=== PATIENT | male | born 1960 | race Caucasian/White ===

== ENCOUNTER → 2022-02-10 14:53 | Outpatient (CLI) | payer OTHER, SELFPAY ==
--- NOTE | 2022-02-10 15:09 | DI.MRI.S_ITS ---
PROCEDURE: MR LUMBAR SPINE WO CON INDICATIONS: Spinal stenosis, lumbar region TECHNIQUE: Noncontrast sagittal T1 spin echo and T2 fast echo, sagittal STIR, and T2 fast spin echo through the lumbar spine. In cases with scoliosis, additional coronal T2 fast spin echo may be performed. COMPARISON: None. FINDINGS: Image quality: Excellent. Alignment and Curvature: There is normal bony alignment. Bone Marrow: Marrow is of normal overall signal. No acute vertebral body compression fractures. Small vertebral body hemangioma are focal fatty sparing noted in the L2 vertebral body. Posterior júnior and screw instrumentation noted at L4-5 and L5-S1 associated with well-healed interbody fusion Spinal Cord: Conus medullaris terminates at the L1 level. Visualized cord demonstrates normal signal and size. Paraspinous Soft Tissues: No paravertebral masses. T12-L1: Normal appearance. L1-L2: Normal appearance. L2-L3: Disc height is preserved. Mild hypertrophic facet joints present. No central or foraminal stenosis. L3-L4: Disc height is preserved. No central or foraminal stenosis. L4-L5: Discectomy and fusion. No central stenosis. Moderate right and no left foraminal stenosis L5-S1: Discectomy and fusion. No central stenosis noted. There is moderate right and mild left foraminal stenosis. IMPRESSION: L4-5 and L5-S1 discectomy and fusion with good graft incorporation and posterior júnior and screw instrumentation in good position. Moderate right foraminal stenosis L4-5 and L5-S1 Approved by: Kole Rodriguez M.D. on 02/11/2022 at 9:19
== END ==
PROVIDERS: PCP Family Medicine; Referring Provider Orthopaedic Surgery Orthopaedic Surgery of the Spine; Visit Provider Orthopaedic Surgery Orthopaedic Surgery of the Spine
DX: M48.061 Spinal stenosis, lumbar region without neurogenic claudication (principal); Z98.1 Arthrodesis status
CPT/HCPCS: 72148; A9579

== ENCOUNTER → 2025-07-26 09:43 | Outpatient (CLI) | payer OTHER, SELFPAY ==
--- NOTE | 2025-07-26 09:47 | DI.RAD.S_ITS ---
PROCEDURE: XR THORACIC SPINE 2V INDICATIONS: BACK PAIN TECHNIQUE: 2 views of the thoracic spine were acquired. COMPARISON: None. FINDINGS: Bones: No fractures or dislocations. No suspicious bony lesions. 12 pairs of ribs are noted, and appear intact where visualized. Mild multilevel disc height loss. Soft tissues: No paravertebral stripe thickening. IMPRESSION: Mild, multilevel degenerative disc disease. Dictated by: Kevin Naranjo M.D. on 07/26/2025 at 15:15 Approved by: Kevin Naranjo M.D. on 07/26/2025 at 15:16
--- NOTE | 2025-07-26 09:47 | DI.RAD.S_ITS ---
PROCEDURE: XR LUMBAR SPINE MIN 4V INDICATIONS: BACK PAIN TECHNIQUE: 7 views of the lumbar spine were obtained. COMPARISON: None. FINDINGS: Bones: 5 nonrib-bearing vertebrae are present. There is normal bony alignment. No vertebral body compression fractures. No suspicious bony lesions. Posterior surgical fusion of L4 through S1. There is osseous fusion of the disc space. Reduction of motion with flexion and extension. Mild disc height loss at remaining levels. Soft tissues: Overlying bowel gas pattern is normal. No suspicious soft tissue calcifications. IMPRESSION: Posterior surgical fusion of L4 through S1, with osseous fusion of the discs. No hardware complication. Reduced motion with flexion and extension. Dictated by: Kevin Naranjo M.D. on 07/26/2025 at 15:13 Approved by: Kevin Naranjo M.D. on 07/26/2025 at 15:15
== END ==
PROVIDERS: PCP Family Medicine; Referring Provider Physician Assistant; Visit Provider Physician Assistant
DX: M54.42 Lumbago with sciatica, left side (principal); M47.814 Spondylosis without myelopathy or radiculopathy, thoracic region; M51.34 Other intervertebral disc degeneration, thoracic region; Z98.1 Arthrodesis status
CPT/HCPCS: 72070; 72110

== ENCOUNTER → 2025-08-09 19:12 | Outpatient (CLI) | payer OTHER, SELFPAY ==
--- NOTE | 2025-08-09 19:15 | DI.MRI.S_ITS ---
PROCEDURE: MR LUMBAR SPINE WO CON INDICATIONS: Thoracic spondylosis/Lumbago with sciatica,lt side TECHNIQUE: Noncontrast sagittal T1 spin echo and T2 fast echo, sagittal STIR, and T2 fast spin echo through the lumbar spine. In cases with scoliosis, additional coronal T2 fast spin echo may be performed. COMPARISON: [facility], , MR LUMBAR SPINE WO CON, 02/10/2022, 15:40. FINDINGS: Image quality: Excellent. Alignment and Curvature: L4-5 and L5-S1 discectomy fusion with posterior júnior and screw instrumentation. Normal alignment. Bone Marrow: Marrow is of normal overall signal. No acute vertebral body compression fractures. Spinal Cord: Conus medullaris terminates at the L1 level. Visualized cord demonstrates normal signal and size. Paraspinous Soft Tissues: No paravertebral masses. T12-L1: Normal appearance. L1-L2: Normal appearance. L2-L3: Normal appearance. L3-L4: Disc bulge. Mild central stenosis. No foraminal stenosis. L4-L5: Discectomy and fusion with good graft incorporation. No central stenosis. Mild right and no left foraminal stenosis L5-S1: Discectomy and fusion with good graft incorporation. No central stenosis. No foraminal stenosis IMPRESSION: Mild degenerative disc disease without central or foraminal stenosis throughout the exam. Instrumented discectomy and fusion with good graft incorporation at L4-5 and L5-S1 Approved by: Kole Rodriguez M.D. on 08/10/2025 at 11:19
--- NOTE | 2025-08-09 19:15 | DI.MRI.S_ITS ---
PROCEDURE: MR THORACIC SPINE WO CON INDICATIONS: Thoracic spondylosis/Lumbago with sciatica,lt side TECHNIQUE: Noncontrast sagittal T1 spine echo and T2 fast spin echo, sagittal STIR, and T2 fast spin echo through the thoracic spine. COMPARISON: None. FINDINGS: Image quality: Excellent. Alignment and Curvature: There is normal bony alignment. Bone Marrow: Marrow is of normal overall signal. No acute vertebral body compression fractures. Spinal Cord: Visualized spinal cord is normal in size and signal. Paraspinous Soft Tissues: No paravertebral masses. Miscellaneous: On axial images, central canal and foramina appear widely patent at all scanned levels. IMPRESSION: Normal MRI thoracic spine Approved by: Kole Rodriguez M.D. on 08/10/2025 at 11:21
== END ==
LOC: MRI 19:12
PROVIDERS: PCP Family Medicine; Referring Provider Physician Assistant; Visit Provider Physician Assistant
DX: M51.369 Other intervertebral disc degeneration, lumbar region without mention of lumbar back pain or lower extremity pain (principal); M48.061 Spinal stenosis, lumbar region without neurogenic claudication; M81.6 Localized osteoporosis [Lequesne]; Z98.1 Arthrodesis status
CPT/HCPCS: 72146; 72148